=== PATIENT | male | born 1995 | race Two or more races ===

== ENCOUNTER 2025-04-17 17:05 | Emergency (ER) | payer MEDICAID, OTHER ==
[~2025-04-17] VITALS: Ht 167.6 cm; Wt 75.8 kg
[2025-04-17] MEDS: HYDROcodone-ACET 5/325MG TAB PO ONE (17:15)
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
[2025-04-17 18:05] LABS: Hematocrit 48.3 % (41.0-53.0); Hemoglobin 16.6 g/dL (13.5-17.5); Mean Corpuscular Hemoglobin 30.4 pg (28.0-32.0); Mean Corpuscular Volume 88.7 fL (80.0-100.0); Nucleated Red Blood Cells % 0.3 %
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
[2025-04-17 18:10] VITALS: PULSE 93; RESP 16; O2SAT 98
[2025-04-17 18:14] LABS: Chloride 106 mmol/L (98-107); Potassium 3.7 mmol/L (3.5-5.1); Sodium 143 mmol/L (136-145)
[2025-04-17 18:15] LABS: Anion Gap 17 (5-15); Calcium 10.4 mg/dL (8.7-10.4)
[2025-04-17 18:16] LABS: Carbon Dioxide 20 mmol/L (20-31)
[2025-04-17 18:20] LABS: BUN/Creatinine Ratio 7.8 (10.0-20.0)
[2025-04-17 18:26] LABS: Blood Urea Nitrogen 8 mg/dL (9-23); Glucose 116 mg/dL (74-106)
[2025-04-17] MEDS: IOHEXOL 300 MG/ML 100ML BOTTLE IJ ONE (18:35)
--- NOTE | 2025-04-17 20:29 | DVH ---
EXAM: CT HEAD WITHOUT CONTRAST INDICATION: [facility] TECHNIQUE: CT of the head without intravenous contrast. Radiation Dose Information: CT Dose: CTDI volume is 25 mGy. Dose-length product is250 mGy*cm The dose indicators for CT are the volume Computed Tomography (CT) Dose Index (CTDIvol) and the Dose Length Product (DLP), and are measured in units of mGy and mGy-cm, respectively. These indicators are not patient dose, but values generated from the CT scanner acquisition factors. The report includes radiation exposure data for exposures received during this examination. COMPARISON: None FINDINGS: There is no evidence of acute intracranial hemorrhage, extra-axial collection, mass effect, midline s hift, herniation or hydrocephalus. The ventricles, sulci and cisterns are age appropriate. The wright-white differentiation is intact. The visualized paranasal sinuses and mastoid air cells are clear. The surrounding soft tissues and osseous structures are unremarkable. IMPRESSION: No acute intracranial abnormality.
--- NOTE | 2025-04-17 20:30 | DVH ---
EXAM: CT CERVICAL WITHOUT CONTRAST INDICATION: [facility] EXAM DATE: 04/17/2025 07:52 PM COMPARISON: None TECHNIQUE: Multiple axial CT images of the cervical spine were obtained using bone algorithm. Axial a nd coronal reformatting was done. Bone and soft tissue windows were reviewed. Radiation Dose Information: CT Dose: CTDI volume is 25 mGy. Dose-length product is 250 mGy*cm FINDINGS: The cervical alignment is intact. No acute cervical spine fracture is identified. The vertebral body heights are intact. No suspicious osseous lesions are identified. No significant degenerative changes are identified. There is no prevertebral soft tissue swelling. IMPRESSION: No evidence of acute cervical spine fracture or traumatic malalignment. All CT scans at this medical facility are performed using dose modulation techniques as appropriate t o a performed exam including the following: Automated exposure control was utilized; adjustment of th e MA and/or KV according to patient size; and use of iterative reconstruction technique.
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
[2025-04-17 21:02] LABS: Hematocrit 48.0 % (41.0-53.0); Hemoglobin 16.4 g/dL (13.5-17.5); Mean Corpuscular Hemoglobin 30.3 pg (28.0-32.0); Mean Corpuscular Volume 88.6 fL (80.0-100.0); Nucleated Red Blood Cells % 0.0 %
[2025-04-17 21:09] LABS: Chloride 104 mmol/L (98-107); Potassium 4.5 mmol/L (3.5-5.1); Sodium 137 mmol/L (136-145)
[2025-04-17 21:10] LABS: Anion Gap 12 (5-15); Carbon Dioxide 21 mmol/L (20-31)
[2025-04-17 21:11] LABS: Calcium 9.4 mg/dL (8.7-10.4)
[2025-04-17 21:15] LABS: Glucose 104 mg/dL (74-106)
[2025-04-17 21:16] LABS: BUN/Creatinine Ratio 7.5 (10.0-20.0); Blood Urea Nitrogen 9 mg/dL (9-23)
[2025-04-17 21:17] LABS: INR 1.11 (0.9-1.15); Partial Thromboplastin Time 24.5 SEC (24.5-34.5); Prothrombin Time 11.6 sec (9.3-11.8)
[2025-04-17] MEDS: fentaNYL CITRATE 100 MCG/2 ML VL IV ONE (21:36)
[2025-04-17 22:42] VITALS: PULSE 80; RESP 18; O2SAT 97
[2025-04-17 23:56] VITALS: BP 133/87; PULSE 80; RESP 18; TEMP 98.2; O2SAT 98
== END 2025-04-18 01:06 | disposition short-term general hospital (02) ==
LOC: ER 17:05
DX: S42.032A Displaced fracture of lateral end of left clavicle, initial encounter for closed fracture (principal); S42.112A Displaced fracture of body of scapula, left shoulder, initial encounter for closed fracture; R42 Dizziness and giddiness; V89.2XXA Person injured in unspecified motor-vehicle accident, traffic, initial encounter; Y93.89 Activity, other specified; Y92.410 Unspecified street and highway as the place of occurrence of the external cause; Y99.8 Other external cause status
CPT/HCPCS: 36415; 70450; 71046; 71260; 72125; 73010; 73030; 80048; 85025; 85610; 85730; 86850; 86900; 86901; 96374; 99285; J3010; Q9967